=== PATIENT | male | born 2000 | race Caucasian/White ===

== ENCOUNTER 2021-09-03 16:05 | Emergency (ER) | payer OTHER, SELFPAY ==
--- NOTE | ~2021-09-03 | XR_ITS ---
EXAMINATION: XR finger 3rd LT min 2V DATE: 09/03/2021 16:41 INDICATION: Smashed distal third digit in an anterior drawer. TECHNIQUE: Dorsal palmar, lateral and 2 oblique views of the left third digit were obtained COMPARISON: None FINDINGS: Bone alignment is normal. No fracture. Joint spaces are normal. Small focus of soft tissue gas at the nailbed of the third digit. No radiopaque foreign bodies. IMPRESSION: 1. Likely posterior neck soft tissue gas at the nailbed of the left third digit. No osseous abnormali ty. Reviewed, dictated and finalized at location A. CAL EXAMINER IMPRESSION: 1. Likely posterior neck soft tissue gas at the nailbed of the left third digit . No osseous abnormality.
[2021-09-03 16:26] VITALS: BP 143/78; PULSE 84; RESP 18; TEMP 37.1; O2SAT 99
--- NOTE | 2021-09-03 16:34 | ED.UPPEXIN ---
HPI - Extremity Injury (Upper) General Chief Complaint: Extremity Injury, Upper Stated Complaint: finger injury Time Seen by Provider: 09/03/21 16:12 Source: patient Mode of arrival: ambulatory Limitations: no limitations History of Present Illness HPI narrative: 21-year-old male presents to [facility] with complaints of pain to his left 3rd finger --reports that he smashed his finger in an anterior garage door 90 minutes ago. Patient reports throbbing pain to the distal aspect of his finger. Patient did take [id number] ibuprofen with minimal relief. Patient denies numbness, tingling or decreased range of motion. MD complaint: injury to: left and finger (3rd ) Onset (ago): minute(s) (90) Other Extremity Injury: Left: fingers Handedness: right Place: home Context: other (smashing injury ) Associated symptoms: denies other symptoms Treatments prior to arrival: NSAIDS Related Data Home Medications Medication Instructions Recorded Confirmed No Home Medications 09/03/21 09/03/21 Allergies Allergy/AdvReac Type Severity Reaction Status Date / Time No Known Allergies Allergy Mild Verified 09/03/21 16:34 Review of Systems Constitutional: Constitutional: Denies chills, Denies fatigue, Denies fever(s) and Denies weakness ENT: Denies dysphagia, Denies epistaxis and Denies sore throat Cardiovascular: Cardiovascular: Denies chest pain Respiratory: Respiratory: Denies chest congestion, Denies cough, Denies dyspnea and Denies wheezing Gastrointestinal: Gastrointestinal: Denies abdominal pain, Denies diarrhea, Denies nausea and Denies vomiting Musculoskeletal: Comments: pain to left 3rd finger Integumentary/Breasts: Skin/Breast: Denies rash Neurologic: Denies vertigo, Denies dizziness and Denies syncope PMFSH Social History Social History (Updated 09/03/21 @ 16:35 by Corine Zazueta APRN) Smoking status: Current every day smoker Tobacco type: e-cigarettes/vaping Gender identity (if verbalized by the patient): Male Comments At time of signature, I agree with nursing past medical, surgical, social and family history. There is no relevant family history pertinent to the presenting complaint. Exam Const: General: no acute distress and alert Nutritional Appearance: well nourished Orientation/consciousness: patient oriented x3 Neck: Neck: normal visual inspection Resp: Effort & Inspection: normal respiratory effort, not labored and not tachypneic Auscultation: clear to auscultation bilaterally Cardio: Rate: regular rate, not bradycardic and not tachycardic Rhythm: regular rhythm Skin: General skin exam: normal color Wounds: no wounds Neuro: General: patient oriented x3, moves all extremities and no meningeal signs Extrem: Other: Pain and mild swelling noted to distal aspect of left 3rd finger. Subungual hematoma noted to nail bed to left 3rd finger. Full range of motion noted to her finger. Pulses are within normal limits Psych: Appearance: grossly normal Mental Status: mental status grossly normal Affect: normal affect Attitude: cooperative Thought content: Yes Normal thought content present Course Course Level of Care: Express Care Visit Vital Signs Vital signs: Vital Signs Temperature 37.1 C 09/03/21 16:26 Pulse Rate 84 09/03/21 16:26 Respiratory Rate 18 09/03/21 16:26 Blood Pressure 143/78 H 09/03/21 16:26 Pulse Oximetry 99 09/03/21 16:26 Temperature 37.1 C 09/03/21 16:26 Pulse Rate 84 09/03/21 16:26 Respiratory Rate 18 09/03/21 16:26 Blood Pressure 143/78 H 09/03/21 16:26 Pulse Oximetry 99 09/03/21 16:26 Procedures Other Procedure Procedure 1: Other Procedure: Subungual hematoma drainage to left third finger using cautery pen. Nailbed was cleansed first with Betadine swab. Cautery pen was used to left third nailbed. Moderate amount of blood was drained from nail. Nail was then cleansed with normal saline, Neosporin and Band-Aid
== END 2021-09-03 17:17 | disposition home or self-care (01) ==
PROVIDERS: Emergency Provider Nurse Practitioner Family
DX: S60.032A Contusion of left middle finger without damage to nail, initial encounter (principal); W23.0XXA Caught, crushed, jammed, or pinched between moving objects, initial encounter; F17.290 Nicotine dependence, other tobacco product, uncomplicated
CPT/HCPCS: 11740; 73140; 99213; G0463

== ENCOUNTER 2025-06-17 18:33 | Emergency (ER) | payer SELFPAY ==
--- NOTE | ~2025-06-17 | US_ITS ---
EXAMINATION:Ultrasound scrotum with Doppler: DATE: 06/17/2025. INDICATION: Left scrotal pain. No history of trauma. TECHNIQUE: High resolution ultrasound of the scrotum with Doppler. COMPARISON: None. FINDINGS: No intratesticular lesions on either side. Normal and symmetric color perfusion of both testes are noted. No extratesticular mass. No significant hydrocele. Small varicocele is noted on the left side. IMPRESSION: 1. No intratesticular lesions. Normal color perfusion of both testes are noted. 2 small left-sided varicocele. Reviewed, dictated and finalized at location T. [employer] SUPERVISOR
[2025-06-17 19:11] VITALS: BP 136/77; PULSE 72; RESP 16; TEMP 36.4; O2SAT 100
[2025-06-17 21:58] VITALS: BP 135/91; PULSE 70; RESP 16; TEMP 36.5; O2SAT 99
--- NOTE | 2025-06-17 22:03 | ED.MALEGU ---
HPI - Male Genitourinary General Chief complaint: Urogenital-Male Stated complaint: TESTICULAR PAIN X1WK Time Seen by Provider: 06/17/25 20:44 History of Present Illness HPI Narrative: For last week, patient has had some pain to his left testicle. No dysuria, discharge, no concern for STDs, he is monogamous with his fiancee of years. Related Data Home Medications ?Medication ?Instructions ?Recorded ?Confirmed ?Last Taken ?Type No Home Medications 09/03/21 09/03/21 Unknown History Allergies Allergy/AdvReac Type Severity Reaction Status Date / Time No Known Allergies Allergy Mild Verified 06/17/25 19:16 Review of Systems Review of Systems: All systems reviewed & are unremarkable except as noted in HPI and below PMFSH Social History Social History (Updated 09/03/21 @ 16:35 by Corine Zazueta, SONYA) Smoking status: Current every day smoker Tobacco type: e-cigarettes/vaping Gender identity (if verbalized by the patient): Male Exam Narrative: EXAMINATION OF ORGAN SYSTEMS/BODY AREAS: Constitutional: Vital signs per nursing GENERAL:[No acute distress, non-toxic appearing.] HEAD: Normal with no signs of head trauma. EYES: EOMI, conjunctiva normal ENT: Hearing grossly intact LUNGS: Nonlabored breathing. HEART: [Regular rate and rhythm] ABD: [Soft], [nontender to palpation] : Slight tenderness left testicle EXT: Normal range of motion SKIN: [No rashes or lesions.] NEURO: [Alert. No gross focal sensory or strength deficits.] PSYCH: Normal affect Course Vital Signs Vital signs: Vital Signs Temperature 97.6 F 06/17/25 19:11 Pulse Rate 72 06/17/25 19:11 Respiratory Rate 16 06/17/25 19:11 Blood Pressure 136/77 06/17/25 19:11 Pulse Oximetry 100 06/17/25 19:11 Oxygen Delivery Room Air 06/17/25 19:11 Temperature 97.7 F 06/17/25 21:58 Pulse Rate 70 06/17/25 21:58 Respiratory Rate 16 06/17/25 21:58 Blood Pressure 135/91 H 06/17/25 21:58 Pulse Oximetry 99 06/17/25 21:58 Oxygen Delivery Room Air 06/17/25 19:11 [facility] Narrative Medical decision making narrative: Patient presenting with left testicle pain, he is well-appearing here, does have some very minimal tenderness to left testicle. Denies any concerns for STDs, he has no dysuria or discharge. Scrotal ultrasound showing varicocele. This discussed with patient, as well as need for follow-up to Urology and return precautions Differential Diagnosis Differential Diagnosis: Epididymitis, varicocele, hydrocele Imaging Data Radiologist's impression: ITS Impressions Scrotum Ultrasound 06/17/25 21:25 IMPRESSION: 1. No intratesticular lesions. Normal color perfusion of both testes are noted. 2 small left-sided varicocele. Discharge Plan Discharge Clinical Impression: Left varicocele Patient Disposition: Home Condition: Stable Instructions: Testicle Pain (ED) Additional Instructions: Your ultrasound today did show a varicocele. This generally does not cause issues, but could potentially affect your fertility. You can take ibuprofen for pain and use scrotal support; and follow up with the urologist. You can always return to the ER if your symptoms worsen. Patient Language: Turkmen Prescriptions: No Action No Home Medications Follow-up/Referrals: Manolo Galvan MD [Physician, Urology] - 2 Days PHYSICIAN,DEMURRAGE WORKER [Primary Care Provider, Internal Medicine]
== END 2025-06-17 22:02 | disposition home or self-care (01) ==
PROVIDERS: Emergency Provider Emergency Medicine
DX: I86.1 Scrotal varices (principal); F17.290 Nicotine dependence, other tobacco product, uncomplicated
CPT/HCPCS: 76870; 93976; 99284